=== PATIENT | female | born 1940 | race Caucasian/White ===

== ENCOUNTER 2016-06-16 04:56 | Day surgery (SDC) | payer MEDICARE, OTHER ==
[2016-06-14 14:54] LABS: HEMOGLOBIN 13.2 g/dL (12.0-16.0)
[2016-06-14 14:57] LABS: HEMATOCRIT 39.1 % (36.0-48.0)
[2016-06-14 15:08] LABS: BUN (BLOOD UREA NITROGEN) 18 MG/DL (6-23); CHLORIDE, SERUM 98 MMOL/L (96-112); CO2 (CARBON DIOXIDE) 32 MMOL/L (24-34); CREATININE 1.02 MG/DL (0.55-1.02); GFR AFRICAN AMERICAN 61 ML/MIN (>=60); GFR NON AFRICAN AMERICAN 53 ML/MIN (>=60); POTASSIUM, SERUM 4.8 MMOL/L (3.5-5.3)
[2016-06-14 15:10] LABS: GLUCOSE, SERUM 156 MG/DL (60-99); SODIUM, SERUM 136 MMOL/L (135-148)
[~2016-06-16 04:56] MED LIST: ATEN100 PO; ATV.5 PO; BUSPAR5 PO; DIABETA5 PO; ENDOCET1 TAB PO; GLUCPH PO; L20 PO; LANTUS SC; LIDODERM TOP; LISINOPRIL40 MG PO; MICRO-K10 MEQ PO; MYRBETRIQ25 MG PO; NEUR600 PO; NIASPAN500 PO; NITROSTAT0.4 MG SL; NOVOPEN SC; PRILOSEC40 MG PO; T PO; TRAZODONE150 MG PO; VITAMIN D1000 UNI1 PO; ZANAFLEX2 MG PO; ZOL100 PO
== END 2016-06-16 11:48 | disposition home or self-care (01) ==
LOC: SDC 04:56
PROVIDERS: Ophthalmology
PROC: 08RJ3JZ Replacement of Right Lens with Synthetic Substitute, Percutaneous Approach (ICD-10-PCS; principal; 2016-06-16 07:15)
DX: H25.11 Age-related nuclear cataract, right eye (principal); I10 Essential (primary) hypertension; I25.10 Atherosclerotic heart disease of native coronary artery without angina pectoris; E11.9 Type 2 diabetes mellitus without complications; J44.9 Chronic obstructive pulmonary disease, unspecified; G47.33 Obstructive sleep apnea (adult) (pediatric); Z88.2 Allergy status to sulfonamides; Z79.899 Other long term (current) drug therapy; Z79.4 Long term (current) use of insulin; Z79.52 Long term (current) use of systemic steroids; Z79.891 Long term (current) use of opiate analgesic; Z87.891 Personal history of nicotine dependence; Z98.890 Other specified postprocedural states
CPT/HCPCS: 80048; 82962; 85014; 85018; 93005; J2405; J3010

== ENCOUNTER 2016-06-30 05:28 | Day surgery (SDC) | payer OTHER ==
[2016-06-28 11:47] LABS: HEMATOCRIT 39.6 % (36.0-48.0); HEMOGLOBIN 13.1 g/dL (12.0-16.0)
[2016-06-28 12:01] LABS: CHLORIDE, SERUM 104 MMOL/L (96-112); CO2 (CARBON DIOXIDE) 32 MMOL/L (24-34); CREATININE 0.92 MG/DL (0.55-1.02); GFR AFRICAN AMERICAN 69 ML/MIN (>=60); GFR NON AFRICAN AMERICAN 60 ML/MIN (>=60); POTASSIUM, SERUM 5.4 MMOL/L (3.5-5.3); SODIUM, SERUM 141 MMOL/L (135-148)
[2016-06-28 12:02] LABS: BUN (BLOOD UREA NITROGEN) 23 MG/DL (6-23); GLUCOSE, SERUM 121 MG/DL (60-99)
== END 2016-06-30 13:16 | disposition home or self-care (01) ==
LOC: SDC 05:28
PROVIDERS: Ophthalmology
PROC: 08RK3JZ Replacement of Left Lens with Synthetic Substitute, Percutaneous Approach (ICD-10-PCS; principal; 2016-06-30 07:15)
DX: H25.12 Age-related nuclear cataract, left eye (principal); J44.9 Chronic obstructive pulmonary disease, unspecified; G47.33 Obstructive sleep apnea (adult) (pediatric); K21.9 Gastro-esophageal reflux disease without esophagitis; E11.9 Type 2 diabetes mellitus without complications; I25.2 Old myocardial infarction; Z95.0 Presence of cardiac pacemaker; I25.10 Atherosclerotic heart disease of native coronary artery without angina pectoris; Z88.2 Allergy status to sulfonamides; Z79.4 Long term (current) use of insulin; Z79.899 Other long term (current) drug therapy; Z79.891 Long term (current) use of opiate analgesic; Z98.890 Other specified postprocedural states; Z98.41 Cataract extraction status, right eye; Z90.710 Acquired absence of both cervix and uterus
CPT/HCPCS: 80048; 82962; 85014; 85018; J2405; J3010